=== PATIENT | female | born 1995 | race Caucasian/White ===

== ENCOUNTER 2020-01-25 15:43 | Outpatient (REF) | payer MEDICAID, SELFPAY | END 2020-01-25 15:44 | disposition home or self-care (01) | LOC: HO.LAB 15:43 | PROVIDERS: Visit Provider Internal Medicine | DX: Z20.828 Contact with and (suspected) exposure to other viral communicable diseases (principal) | CPT/HCPCS: C9803; U0003 ==

== ENCOUNTER 2020-05-27 16:54 | Emergency (ER) | payer MEDICAID, SELFPAY ==
--- NOTE | ~2020-05-27 | US_ITS ---
EXAMINATION: US PELVIS CLINICAL INFORMATION: Lower pelvic pain, history of polycystic ovary disease COMPARISON: None TECHNIQUE: Ultrasound of the pelvis is performed transabdominal along with Doppler. Patient refused endovaginal imaging. FINDINGS: Uterus: The uterus is anteverted and measures 6.9 x 2.0 x 3.4 cm. No discrete lesion. The double wall endometrial thickness is 4 mm. The uterus is smooth in contour and has normal myometrial echogenicity. No visible fibroid. Adnexa: Both ovaries are visualized. There is normal color flow to the adnexa. There is no ovarian torsion. There is no pelvic ascites or fluid collection. Both ovaries are very echogenic and somewhat enlarged and rounded. A few cysts are noted particularly on the left. Right ovary measures 5.4 x 3.5 x 4.4 cm. Increased volume of 44 mL. No discrete lesion or cyst. Left ovary measures 4.6 x 2.4 x 3.3 cm. 19 mL in volume US/US pelvic complete IMPRESSION: Ovaries are prominent somewhat echogenic and enlarged. Although no cysts or definitively visualized in a characteristic pattern, the appearance is consistent with polycystic ovary disease. No active torsion.
[2020-05-27 17:09] VITALS: BP 116/68; PULSE 106; RESP 16; TEMP 36.9; O2SAT 98; BMI 49.9
--- NOTE | 2020-05-27 19:33 | ED.ABDPAIN ---
HPI - Abdominal Pain General Chief Complaint: Abdominal Pain Stated Complaint: abdominal pain Time Seen by Provider: 05/27/20 19:23 Source: patient Mode of arrival: ambulatory Limitations: no limitations History of Present Illness HPI narrative: 24-year-old female with a past medical history of PCOS here with bilateral lower pelvic cramping x2 days. No urinary symptoms, fevers, chills, nausea, vomiting, constipation, diarrhea, vaginal discharge, lesions, rashes. Patient is not sexually active. She is taking metformin for PCOS as well as oral control pills. She does not normally have cramping. Her last menstrual cycle was 2 weeks ago was normal. Related Data Previous Rx's Medication Instructions Recorded ibuprofen 600 mg PO Q8H PRN #20 tab 05/27/20 Allergies Allergy/AdvReac Type Severity Reaction Status Date / Time No Known Allergies Allergy Unverified 12/08/19 17:54 Review of Systems Review of Systems Yes all other systems are reviewed and are negative Constitutional: Reports no additional constitutional complaints, Denies body ache(s), Denies chills, Denies fever(s), Denies headache(s) and Denies weakness Eyes: Reports no additional eye complaints and Denies change in vision Reports system reviewed and no additional complaints, except as documented, Denies dizziness, Denies headache(s), Denies nasal congestion, Denies nasal discharge and Denies neck pain Cardiovascular: Reports no additional cardiovascular complaints, Denies chest pain, Denies leg edema and Denies dyspnea Respiratory: Reports no additional respiratory complaints, Denies cough and Denies dyspnea Gastrointestinal: Reports no additional gastrointestinal complaints, Denies abdominal pain, Denies diarrhea, Denies nausea and Denies vomiting Genitourinary: Reports no additional female genitourinary complaints, Reports pelvic pain and Denies urinary incontinence Musculoskeletal: Reports no additional musculoskeletal complaints, Denies back pain, Denies arthralgias, Denies joint swelling, Denies neck pain, Denies numbness and Denies tingling Skin/Breast: Reports system reviewed and no additional complaints, except as docu and Denies rash Reports system reviewed and no additional complaints, except as documented, Denies Abnormal speech present, Denies dizziness, Denies headache(s), Denies numbness, Denies tingling and Denies weakness Physical Exam Vital Signs: Vital Signs: Last Vital Signs Temp 98.0 F 05/27/20 21:28 Pulse 96 05/27/20 21:28 Resp 18 05/27/20 21:28 BP 129/87 05/27/20 21:28 Pulse Ox 98 05/27/20 21:28 Body Mass Index 49.9 Const: General: cooperative, healthy appearing, comfortable and no acute distress Orientation/consciousness: patient oriented x3 Limitations: no limitations HENMT: Head: Yes normal to inspection Ears: hearing grossly normal bilaterally General nose exam: Normal external nose present Face and sinus: Yes normal facial exam Mouth: Normal oral and palatal mucosa present Throat: Yes posterior oropharynx normal Eyes: General: appearance normal, both eyes and all related structures Pupils: Equal, round and reactive pupils present Neck: Neck: Yes normal visual inspection Chest: Chest palpation & inspection: normal inspection of the chest Resp: Effort & Inspection: normal respiratory effort Auscultation: clear to auscultation bilaterally Cardio: Rate: regular rate Rhythm: regular rhythm Peripheral pulses: Peripheral pulses 2+ throughout GI: Inspection: Yes normal to inspection Palpation (GI): Soft to palpation and Tenderness to palpation present (GI) (mild bilateral lower pelvic discomfort with no rebound or guarding) Auscultation: normal bowel sounds Back/Spine/Pelvis: Thoracic/Lumbar Spine: thoracic and lumbar spine normal to inspection Skin: General skin exam: no rashes or lesions noted Neuro: General: patient oriented x3, no focal motor deficits and normal sensation to monofilament Cranial nerves: Yes Equal, round and reactive pupils present Cognition (Neuro): normal cognition Speech: No Abnormal speech present Gait exam (Neuro): Normal gait present Motor exam (neuro): 5/5 motor strength present throughout Extrem: General: Yes normal to inspection Course Course Course Narrative: 24 yo female with past medical history of PCOS here with bilateral lower pelvic cramping x 2 days with no other associated symptoms. Check, UA, pelvic ultrasound 2129-labs unremarkable urine negative. Ultrasound consistent with PCOS although limited as patient refused TV US. Pain improved with NSAIDs. Overall nontoxic appearing abdomen is benign. Will refer to liquor merchant for follow-up. Reviewed worrisome signs and symptoms of when to return to emergency department. Comfortable discharge home. MDM - Abdominal Pain Medical Records Attestation: I reviewed the patient's medical records. Lab Data Attestation: I reviewed the patient's lab results. Result diagrams: 05/27/20 19:41 05/27/20 19:41 Labs: Lab Results 05/27/20 05/27/20 05/27/20 Range/Units 19:41 19:41 20:13 WBC 11.6 H (4.8-10.8) X10*3/uL RBC 4.54 (4.20-5.50) X10*6/uL Hgb 13.0 (12.0-16.0) g/dl Hct 40.9 (37-47) % MCV 90.1 (80-98) fL MCH 28.6 (27.0-33.0) pg MCHC 31.8 (31.0-35.0) g/dl RDW 13.8 (11.0-16.0) % Plt Count 293 (160-400) X10*3/uL MPV 9.6 (9.4-12.3) fL Immature Gran % (Auto) 0.3 (0.0-0.4) % Neut % (Auto) 55.2 (45-73) % Lymph % (Auto) 33.3 (20-40) % [place] % (Auto) 9.1 (2-11) % Eos % (Auto) 1.8 (0-4) % Baso % (Auto) 0.3 (0-2) % Lymph # (Auto) 3.9 (1.2-4.9) X10*3/uL [place] # (Auto) 1.1 (0.1-1.2) X10*3/uL Eos # (Auto) 0.2 (0.0-0.4) X10*3/uL Baso # (Auto) 0.0 (0.0-0.2) X10*3/uL Abs Immat Gran (auto) 0.03 (0.00-0.03) X10*3/uL Absolute Neuts (auto) 6.4 (2.0-8.3) X10*3/uL Absolute Nucleated RBC 0.000 (0.0-0.012) X10*3/uL Nucleated RBC % (auto) 0.0 (0.0-0.2) /100WBC Sodium 141 (135-145) mmol/L Potassium 4.2 (3.3-5.1) mmol/L Chloride 105 (96-108) mmol/L Carbon Dioxide 28 (22-29) mmol/L Anion Gap 12 (12-20) BUN 13 (9-16) mg/dL Creatinine 0.81 (0.5-1.4) mg/dL Estim Creat Clear Calc 149.8 Estimated GFR > 60 Random Glucose 75 (60-115) mg/dL Calcium 8.6 (8.4-10.2) mg/dL Urine Color YELLOW Urine Appearance CLEAR Urine pH 7.0 (5.0-8.0) Ur Specific [place] 1.020 (1.005-1.025) Urine Protein TRACE (NEG-TRACE) MG/DL Urine Glucose (UA) NEG (NEG) MG/DL Urine Ketones 5 (NEG) MG/DL Urine Blood NEG (NEG) Urine Nitrite NEG (NEG) Ur Leukocyte Esterase NEG (NEG) Urine Test (NEGATIVE) 05/27/20 Range/Units 20:13 WBC (4.8-10.8) X10*3/uL RBC (4.20-5.50) X10*6/uL Hgb (12.0-16.0) g/dl Hct (37-47) % MCV (80-98) fL MCH (27.0-33.0) pg MCHC (31.0-35.0) g/dl RDW (11.0-16.0) % Plt Count (160-400) X10*3/uL MPV (9.4-12.3) fL Immature Gran % (Auto) (0.0-0.4) % Neut % (Auto) (45-73) % Lymph % (Auto) (20-40) % [place] % (Auto) (2-11) % Eos % (Auto) (0-4) % Baso % (Auto) (0-2) % Lymph # (Auto) (1.2-4.9) X10*3/uL [place] # (Auto) (0.1-1.2) X10*3/uL Eos # (Auto) (0.0-0.4) X10*3/uL Baso # (Auto) (0.0-0.2) X10*3/uL Abs Immat Gran (auto) (0.00-0.03) X10*3/uL Absolute Neuts (auto) (2.0-8.3) X10*3/uL Absolute Nucleated RBC (0.0-0.012) X10*3/uL Nucleated RBC % (auto) (0.0-0.2) /100WBC Sodium (135-145) mmol/L Potassium (3.3-5.1) mmol/L Chloride (96-108) mmol/L Carbon Dioxide (22-29) mmol/L Anion Gap (12-20) BUN (9-16) mg/dL Creatinine (0.5-1.4) mg/dL Estim Creat Clear Calc Estimated GFR Random Glucose (60-115) mg/dL Calcium (8.4-10.2) mg/dL Urine Color Urine Appearance Urine pH (5.0-8.0) Ur Specific [place] (1.005-1.025) Urine Protein (NEG-TRACE) MG/DL Urine Glucose (UA) (NEG) MG/DL Urine Ketones (NEG) MG/DL Urine Blood (NEG) Urine Nitrite (NEG) Ur Leukocyte Esterase (NEG) Urine Test NEGATIVE (NEGATIVE) Imaging Data pelvic us: Attestation: I personally reviewed and interpreted this imaging study as follows: Radiologist's impression: Ovaries are prominent somewhat echogenic and enlarged. Although no cysts or definitively visualized in a characteristic pattern, the appearance is consistent with polycystic ovary disease. No active torsion. Discharge Plan Discharge Clinical Impression: PCOS (polycystic ovarian syndrome) Patient Disposition: Home, Self-Care Instructions: Pelvic Pain (ED) Prescriptions: New ibuprofen 600 mg tablet 600 mg PO Q8H PRN (Reason: pain) Qty: 20 RF: 0 Referrals: Fariba Collins MD [Physician] - 2 days Interventions: ED Discharge Assessment Last Done: 05/27/20 22:13 Discharge Date/Time: 05/27/20 22:14 [facility] Past Medical History Attestation statement: The following information was validated with the patient. Source: old records reviewed and nursing notes reviewed Medical History No known health problems PCOS (polycystic ovarian syndrome) Social History Social History Smoked in Last 30 Days: No Advance Directives: No Advance Directives Information Provided: Yes
[2020-05-27 19:47] LABS: MANUAL DIFF FLAG NO
[2020-05-27 19:49] LABS: Basophils Percent Auto 0.3 % (0-2); Eosinophils Absolute Auto 0.2 X10*3/uL (0.0-0.4); Eosinophils Percent Auto 1.8 % (0-4); Hematocrit 40.9 % (37-47); Imm Gran Abs Auto 0.03 X10*3/uL (0.00-0.03); Imm Gran Pct Auto 0.3 % (0.0-0.4); Lymphocytes Absolute Auto 3.9 X10*3/uL (1.2-4.9); Lymphocytes Percent Auto 33.3 % (20-40); Mean Corpuscular HGB Conc 31.8 g/dl (31.0-35.0); Mean Corpuscular Hemoglobin 28.6 pg (27.0-33.0); Mean Corpuscular Volume 90.1 fL (80-98); Mean Platelet Volume 9.6 fL (9.4-12.3); Monocytes Absolute Auto 1.1 X10*3/uL (0.1-1.2); Monocytes Percent Auto 9.1 % (2-11); Neutrophils Absolute Auto 6.4 X10*3/uL (2.0-8.3); Neutrophils Percent Auto 55.2 % (45-73); Platelet Count 293 X10*3/uL (160-400); Red Blood Count 4.54 X10*6/uL (4.20-5.50); Red Cell Distribution Width 13.8 % (11.0-16.0); White Blood Count 11.6 X10*3/uL (4.8-10.8)
[2020-05-27] MEDS: Ketorolac Tromethamine 60 MG/2 ML VIAL IM (19:52)
[2020-05-27 20:15] LABS: Anion Gap 12 (12-20); Blood Urea Nitrogen 13 mg/dL (9-16); Calcium 8.6 mg/dL (8.4-10.2); Carbon Dioxide 28 mmol/L (22-29); Chloride 105 mmol/L (96-108); Creatinine Clr Calc Pharmacy 149.8; Estimated Glomerular Filt Rate > 60; Glucose Random 75 mg/dL (60-115); Potassium 4.2 mmol/L (3.3-5.1); Sodium 141 mmol/L (135-145)
[2020-05-27 20:24] LABS: Glucose Urine UA NEG (NEG); Leukocyte Esterase Urine NEG (NEG); Nitrite Urine NEG (NEG); Urine Blood NEG (NEG); Urine Ketones 5 MG/DL (NEG); Urine Protein TRACE MG/DL (NEG-TRACE)
[2020-05-27 20:26] LABS: Appearance Urine CLEAR; Color Urine YELLOW
[2020-05-27 20:27] LABS: UPreg QC Valid YES; Urine Pregnancy NEGATIVE (NEGATIVE)
[2020-05-27 21:28] VITALS: BP 129/87; PULSE 96; RESP 18; TEMP 36.7; O2SAT 98
== END 2020-05-27 22:14 | disposition home or self-care (01) ==
PROVIDERS: Nurse Practitioner Family; Emergency Provider Internal Medicine
DX: E28.2 Polycystic ovarian syndrome (principal); R10.2 Pelvic and perineal pain; Z79.899 Other long term (current) drug therapy
CPT/HCPCS: 36415; 76856; 80048; 81003; 81025; 85025; 96372; 99284; 99285; J1885